=== PATIENT | male | born 1990 | race Caucasian/White ===

== ENCOUNTER → 2019-02-04 | Outpatient (CLI) | payer OTHER | LOC: SLEEP 20:38 | PROVIDERS: ATTEND Internal Medicine | DX: G47.30 Sleep apnea, unspecified (principal); R06.83 Snoring; G25.81 Restless legs syndrome | CPT/HCPCS: 95810 ==

== ENCOUNTER → 2019-06-29 | Outpatient (CLI) | payer OTHER ==
--- NOTE | 2019-07-13 02:43 | Polysomnography ---
DATE OF STUDY: 06/29/2019 REFERRING PHYSICIAN: Patient of Dr. Kevin Bruno. The patient with a history of severe obstructive sleep apnea. The patient was titrated from a level 4 to a high of 13 cm of water pressure. Apneas persisted and he was changed to BiPAP at a pressure of 13/9, a medium size full face mask was employed. O2 saturation improved. It was recommended that he be given a home trial of nasal BiPAP at a level of 13/9. This level apneas and hypopneas were essentially eliminated. There was no significant O2 desaturation. Heated humidification was recommended to improve the patient compliance and comfort. There were episodes of central sleep apnea noted and a backup rate of 10 was employed. IMPRESSION: Improvement in severe obstructive sleep apnea with BiPAP at a level of 13/9. ResMed AirFit F20 medium size mask was employed and was well tolerated. MD YANELY Marcelo/FRANNY /[id number]
== END ==
LOC: SLEEP 19:48
PROVIDERS: ATTEND Internal Medicine
DX: G47.33 Obstructive sleep apnea (adult) (pediatric) (principal)
CPT/HCPCS: 95811